=== PATIENT | male | born 1985 | race Caucasian/White ===

== ENCOUNTER 2016-07-19 08:42 | Emergency (ER) | payer BC, OTHER ==
--- NOTE | 2016-07-19 09:47 | CT ---
EXAMINATION: Non contrast CT head and facial bones. Coronal and sagittal reformats. HISTORY: Pain FINDINGS: Head: No evidence of intra or extra axial hemorrhage, mass, midline shift, hydrocephalus or edema. No hypoattenuation changes in the major vascular territories to suggest acute infarct. No abnormal intracranial calcifications are detected. No evidence of substantial vascular calcifications. There is fluid within the right maxillary sinus. Pituitary fossa appears unremarkable. Calvarium is intact. No evidence of skull fracture. Facial bones: The nasal bones appear intact. The mildly depressed and comminuted anterior maxillary wall fracture. There is also a minimally displaced posterior maxillary wall fracture noted. The left maxillary sinus appears intact. There is mild rightward deviation of the nasal septum with a small spur. The zygomatic arches and pterygoid plates are intact. The mandible is intact. The orbits and g lobes are symmetric. The orbital porter are preserved. Bone mineralization is otherwise normal. IMPRESSION: 1. No acute intracranial findings. 2. Anterior and posterior right maxillary wall fractures with a small amount of hemorrhage within th e right maxillary sinus.
--- NOTE | 2016-07-19 09:49 | CT ---
EXAMINATION: CT cervical spine HISTORY: Pain COMPARISON: None TECHNIQUE: Axial CT images obtained through the cervical spine without contrast. Coronal and sagitta l reconstructions obtained. FINDINGS: There is straightening of the normal cervical lordosis, likely positional. The vertebral b usha heights and disc spaces appear maintained. No fracture or dislocation. Bone mineralization is no rmal. Visualized lung apices are clear. The paravertebral soft tissues otherwise appear normal. IMPRESSION: No acute cervical spinal abnormality.
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
[2016-07-19 10:12] VITALS: BP 125/80
== END 2016-07-19 10:06 | disposition home or self-care (01) ==
LOC: MW.ED 08:42
DX: S06.0X9A Concussion with loss of consciousness of unspecified duration, initial encounter (principal); S02.40CA Maxillary fracture, right side, initial encounter for closed fracture; S16.1XXA Strain of muscle, fascia and tendon at neck level, initial encounter; S05.11XA Contusion of eyeball and orbital tissues, right eye, initial encounter; Z88.2 Allergy status to sulfonamides; Z79.899 Other long term (current) drug therapy; Y04.0XXA Assault by unarmed brawl or fight, initial encounter
CPT/HCPCS: 70450; 70450-26; 70486; 70486-26; 72125; 72125-26; 99284; 99284-25

== ENCOUNTER 2017-02-11 05:22 | Emergency (ER) | payer BC, OTHER ==
[2017-02-11] MEDS ORDERED: Proparacaine 0.5% Ophth Soln 15 ML Bottle EYEBOTH ONE (05:30)
== END 2017-02-11 05:35 | disposition left against medical advice (07) ==
LOC: MW.ED 05:22
DX: Z53.21 Procedure and treatment not carried out due to patient leaving prior to being seen by health care provider (principal)